=== PATIENT | female | born 1990 | race Caucasian/White ===

== ENCOUNTER → 2022-06-16 18:40 | Observation (INO) ==
[2022-06-16 15:22] LABS: Bilirubin,Urine Negative (Negative); Blood,Urine Negative (Negative); Clarity,Urine Clear (Clear); Color,Urine Light-Yellow (Yellow); Glucose,Urine (UA) Normal (Normal); Ketones,Urine Negative (Negative); Leukocyte Esterase,Urine Negative (Negative); Nitrite,Urine Negative (Negative); Protein,Urine Negative (Neg-Trace); Specific Gravity,Urine 1.013 (1.010-1.025); Urobilinogen,Urine Normal (Normal)
[~2022-06-16 18:40] MED LIST: Ringers Solution, Lactated 1,000 ML ONE
== END | disposition home or self-care (01) ==
LOC: 1NENULAB
PROVIDERS: ADMIT Student in an Organized Health Care Education/Training Program; ATTEND Student in an Organized Health Care Education/Training Program

== ENCOUNTER 2022-07-14 10:07 | Inpatient (IN) ==
[2022-07-14] MEDS ORDERED: Metoclopramide 10 MG/2 ML VIAL IVP PRN (10:59)
[2022-07-14] MEDS ORDERED: Naloxone 0.4 MG/ML INJ IVP PRN (10:59)
[2022-07-14] MEDS ORDERED: Famotidine 20 MG/2 ML VIAL IVP PRN (10:59)
[2022-07-14] MEDS ORDERED: D5% in 0.45% NACL 1,000 ML IVC SCH (11:30)
[2022-07-14 11:35] LABS: Basophils % 0.2 %; Eosinophils # 0.1 K/mcL (0.0-0.6); Eosinophils % 0.6 %; Hematocrit 34.8 % (35.3-44.9); Hemoglobin 11.8 g/dL (11.5-15.4); Immature Granulocytes % 0.6 % (0-4); Lymphocytes # 1.8 K/mcL (0.6-4.6); Lymphocytes % 14.7 %; Mean Corpuscular HGB Conc 33.9 g/dL (31.6-35.5); Mean Corpuscular Hemoglobin 30.2 pg (28.0-33.3); Mean Platelet Volume 12.7 fL (9.4-12.4); Monocytes # 0.5 K/mcL (0.0-1.3); Monocytes % 4.1 %; Platelet Count 168 K/mcL (140-400); Red Blood Count 3.91 M/mcL (3.82-4.97); Red Cell Distribution Width 13.4 % (11.5-14.5); Segmented Neutrophils % 79.8 %; White Blood Count 12.5 K/mcL (4.3-11.1)
[2022-07-14 11:57] LABS: Amphetamine Screen,Urine Negative ng/mL (Cutoff=1000); Barbiturate Screen,Urine Negative ng/mL (Cutoff=200); Benzodiazepines Screen,Urine Negative ng/mL (Cutoff=200); Cannabinoid Screen,Urine Negative ng/mL (Cutoff = 50); Cocaine Screen,Urine Negative ng/mL (Cutoff= 300); Opiate Screen,Urine Negative ng/mL (Cutoff=300); Phencyclidine Screen,Urine Negative ng/mL (Cutoff=25)
[2022-07-14] MEDS ORDERED: Oxytocin 30 UNIT/503 ML BAG IVC SCH (13:30)
[2022-07-14] MEDS ORDERED: *HR* Oxytocin 10 UNIT/ML VIAL ONE (17:40)
[2022-07-14] MEDS ORDERED: *HR* Oxytocin 10 UNIT/ML VIAL IM ONE (20:14)
[2022-07-14] MEDS ORDERED: Rho Immune Globulin 1,500 UNIT SYRINGE IM PRN (20:14)
[2022-07-14] MEDS ORDERED: Benzocaine/Menthol 56 GM AEROSOL SPRAY TP PRN (20:14)
[2022-07-14] MEDS ORDERED: Ondansetron ODT 4 MG TAB.RAPDIS SL PRN (20:14)
[2022-07-14] MEDS: Lanolin 7 G OINT...G. TP PRN (23:00)
[2022-07-14] MEDS: Acetaminophen 325 MG TABLET PO SCH (23:00)
[2022-07-14] MEDS: Ibuprofen 600 MG TABLET PO SCH (23:00)
[2022-07-15 06:19] VITALS: O2SAT 98
[2022-07-15 07:09] VITALS: PULSE 90
[2022-07-15] MEDS ORDERED: Prenatal Vit/FA 1 EACH TABLET PO SCH (09:00)
[2022-07-15] MEDS: Lanolin 7 G OINT...G. TP PRN (09:54)
[2022-07-15] MEDS: Ibuprofen 600 MG TABLET PO SCH (09:54)
[2022-07-15] MEDS: Acetaminophen 325 MG TABLET PO SCH (09:54)
[2022-07-15 15:53] VITALS: BP 124/82; TEMP 98.2
== END 2022-07-15 16:49 | disposition home or self-care (01) | DRG 807 ==
LOC: 1NENULAB 10:07 → 1NENUOBS 20:02
PROVIDERS: ADMIT Obstetrics & Gynecology; ATTEND Obstetrics & Gynecology